=== PATIENT | male | born 1995 | race Caucasian/White ===

== ENCOUNTER 2023-02-09 14:09 | Emergency (ER) | payer MEDICAID ==
[2023-02-09 14:26] VITALS: BP 137/61
--- NOTE | 2023-02-09 15:24 | ED Physician Documentation ---
PD HPI SKIN - Stated complaint Stated Complaint: LUMP ON BACKSIDE - Chief complaint Chief Complaint: General - History obtained from History obtained from: Patient - History of Present Illness Timing - onset: Yesterday Timing - duration: Days (2) Timing - details: Gradual onset, Still present Location: Other (he noted a lump when wiping yestereday that is still present today. No pain/tenderness. No blood in stool. No abd pain. Has not had similar in the past.) Quality / character: Swelling (he states about half the size of a grape.). No: Itchy, Painful, Draining Associated symptoms: Other (some firm stools but not constipated per se. Not having to bear down. No diarrhea.). No: Fever, Myalgias, N/V/D Similar symptoms before: Has not had sx before Review of Systems Constitutional: denies: Fever, Chills GI: denies: Abdominal Pain, Nausea, Vomiting, Constipation, Diarrhea PD PAST MEDICAL HISTORY - Past Medical History Cardiovascular: None Respiratory: None - Present Medications Home Medications: Ambulatory Orders Medication Instructions Recorded Confirmed Docusate Sodium 100Mg Capsule 100 mg PO DAILY #20 cap 02/09/23 [Colace 100Mg Capsule] Hydrocortisone Supp [Anusol-Hc] 25 mg WI DAILY 5 Days #5 supp 02/09/23 - Allergies Allergies/Adverse Reactions: Allergies Allergy/AdvReac Type Severity Reaction Status Date / Time No Known Drug Allergies Allergy Verified 02/09/23 14:26 PD ED PE NORMAL - Vitals Vital signs reviewed: Yes - General General: Alert and oriented X 3, No acute distress, Well developed/nourished - Abdomen Abdomen: Soft, Non tender - Male Male : Deferred - Rectal Rectal: Other (small 2 cm external hemorrhoid that is nontender and soft. Does not feel thrombosed. No bleeding noted. No surrounding redness/swelling. ) Results - Vitals Vitals: Vital Signs - 24 hr 02/09/23 14:23 Temperature 36.1 C L Heart Rate 72 Respiratory 18 Rate Blood Pressure 137/61 H O2 Saturation 99 Oxygen O2 Source Room air PD Medical Decision Making - ED course Complexity details: considered differential (appears as a hemorrhoid. he has not had one before and was concerned about a new lump at rectum. we discussed treatment apropaches. ), d/w patient Departure - Departure Disposition: 01 Home, Self Care Clinical Impression: External hemorrhoid Condition: Stable Record reviewed to determine appropriate education?: Yes Instructions: Anusol Ointment, ED Hemorrhoids Prescriptions: Hydrocortisone Supp [Anusol-Hc] 25 mg WI DAILY 5 Days #5 supp Docusate Sodium 100Mg Capsule [Colace 100Mg Capsule] 100 mg PO DAILY #20 cap Comments: This appears to be a simple external hemorrhoid. It does not appear infected nor thrombosed nor bleeding. You can treat this with topical rypc-idm-icxvuum hemorrhoid cream such as Preparation H or hydrocortisone. If its hard for it to go away over the next several days (3 to 5 days) then sometimes there is some internal hemorrhoids component as well. If so add Hydrocortisone suppositories daily for several days. I would also suggest a stool softener daily for the next few days so the stool comes out easily but not watery. Stay well-hydrated. Return if increasing pain tenderness or swelling develops over the next several days. Discharge Date/Time: 02/09/23 16:10
== END 2023-02-09 16:10 | disposition home or self-care (01) ==
LOC: ED 14:09
DX: K64.4 Residual hemorrhoidal skin tags (principal)
CPT/HCPCS: 99282; 99283

== ENCOUNTER 2024-02-02 13:55 | Emergency (ER) | payer MEDICAID ==
[2024-02-02 14:30] VITALS: O2SAT 100
--- NOTE | 2024-02-02 16:04 | Ultrasound Report ---
PROCEDURE: Testicle w/Doppler INDICATIONS: testicular pain, swelling TECHNIQUE: Real-time scanning was performed of the scrotum and testicles, with image documentation. Color and p ulse Doppler interrogation was performed of both testicles. COMPARISON: None. FINDINGS: Right: Testicle is normal in size at 4.5 x 2.8 x 3.3 cm, and homogenous in echotexture. Epididymis is normal in overall size and morphology. No hydrocele. No varicoceles. Overlying scrotal skin is n ormal in thickness. Left: Testicle is normal in size at 4.5 x 2.5 x 3.8 cm, and homogeneous in echotexture. Epididymis is normal in overall size and morphology, with note made of a 5 mm left epididymal cyst. There is a moderate left-sided hydrocele. No varicoceles. Overlying scrotal skin is normal in thickness. Doppler: Color and pulse Doppler demonstrate normal and symmetric arterial flow in both testicles. IMPRESSION: No intratesticular mass can be seen. Normal-appearing, symmetric testicular vascularity. Moderate left-sided hydrocele. Note: Concordant preliminary findings given by the fondant cooker upon the completion of the examination to Dr. Doyle at 3:55 PM on 02/02/2024. Reviewed by: Kofi Gutierrez MD on 02/02/2024 3:03 PM [facility] Approved by: Kofi Gutierrez MD on 02/02/2024 3:03 PM [facility] Station ID: [id number]
[2024-02-02 16:17] LABS: BILIRUBIN,URINE NEGATIVE (NEGATIVE); CLARITY,URINE CLEAR (CLEAR); GLUCOSE, URINE (UA) NEGATIVE (NEGATIVE); KETONES,URINE (UA) NEGATIVE (NEGATIVE); LEUKOCYTE ESTERASE, URINE NEGATIVE (NEGATIVE); NITRITE,URINE NEGATIVE (NEGATIVE); OCCULT BLOOD,URINE NEGATIVE (NEGATIVE); PROTEIN,URINE NEGATIVE (NEGATIVE); UROBILINOGEN,URINE 0.2 (NORMAL) E.U./dL (NORMAL)
--- NOTE | 2024-02-02 17:11 | ED Physician Documentation ---
History of Present Illness - Stated complaint Stated Complaint: MALE - Chief complaint Chief Complaint: Abd Pain - History obtained from History obtained from: Patient - History of Present Illness Pain level max: 3 Pain level now: 3 - Additonal information Additional information: Patient is a 28-year-old male who presents to the emergency department with intermittent left testicular pain for the past week. He states occasionally feels a dull ache in the left testicle. Denies any STI exposure. No changes in sexual partners. No penile discharge. No swelling. He states he felt like there was a small mass near the epididymis of the left testicle. No skin changes. No redness. No abdominal pain, back pain, flank pain. Has not had similar symptoms previously. No sharp pain. No severe pain. Review of Systems Constitutional: denies: Fever, Chills GI: denies: Vomiting, Diarrhea : denies: Dysuria, Frequency, Hesitancy, Discharge Skin: denies: Rash Musculoskeletal: denies: Neck pain, Back pain PD PAST MEDICAL HISTORY - Past Medical History Cardiovascular: None Respiratory: None - Past Surgical History Past Surgical History: Yes HEENT: Tonsil/Adenoidectomy - Present Medications Home Medications: Ambulatory Orders Medication Instructions Recorded Confirmed No Known Home Medications 02/02/24 02/02/24 - Allergies Allergies/Adverse Reactions: Allergies Allergy/AdvReac Type Severity Reaction Status Date / Time No Known Drug Allergies Allergy Verified 02/02/24 14:29 - Social History Does the pt smoke?: No Smoking Status: Never smoker Does the pt drink ETOH?: Yes Does the pt have substance abuse?: No Substance Use and Type: Marijuana PD ED PE NORMAL - Vitals Vital signs reviewed: Yes - General General: Alert and oriented X 3, No acute distress - HEENT HEENT: Moist mucous membranes - Neck Neck: Supple, no meningeal sign - Cardiac Cardiac: RRR, Strong equal pulses - Respiratory Respiratory: No respiratory distress, Clear bilaterally - Abdomen Abdomen: Soft, Non tender, Non distended - Male Male : Other (Normal testicular exam. No deformity. No normal lie. No testicular tenderness. No scrotal swelling or changes. No penile discharge. No inguinal lymphadenopathy.) - Back Back: No spinal TTP - Derm Derm: Warm and dry - Neuro Neuro: Alert and oriented X 3 - Psych Psych: Normal mood, Normal affect Results - Vitals Vitals: Vital Signs - 24 hr 02/02/24 02/02/24 14:25 17:24 Temperature 36.7 C Heart Rate 71 68 Respiratory 16 16 Rate Blood Pressure 131/79 H 128/82 H O2 Saturation 100 100 Oxygen O2 Source Room air - Labs Labs: Laboratory Tests 02/02/24 02/02/24 16:07 16:07 Urine Color YELLOW Urine Clarity CLEAR Urine pH 7.0 Ur Specific [place] 1.015 Urine Protein NEGATIVE Urine Glucose (UA) NEGATIVE Urine Ketones NEGATIVE Urine Occult Blood NEGATIVE Urine Nitrite NEGATIVE Urine Bilirubin NEGATIVE Urine Urobilinogen 0.2 (NORMAL) Ur Leukocyte Esterase NEGATIVE Ur Microscopic Review NOT INDICATED Urine Culture Comments NOT INDICATED Chlam trachomat DNA PCR NEGATIVE N.gonorrhoeae DNA (PCR) NEGATIVE T. vaginalis (PCR) NEGATIVE - Rads (name of study) Testicular ultrasound Relevant Findings:: Final report received, See rad report PD Medical Decision Making - ED course Complexity details: reviewed results, re-evaluated patient, considered differential, d/w patient ED course: 28-year-old male with a left-sided hydrocele. No evidence of testicular torsion. History is not consistent with torsion. No evidence of testicular mass. No evidence of tumor. No acute findings on urinalysis. Not having significant pain in the emergency department. Can follow-up with his PCP and/or urology as needed for further care. Patient counseled regarding signs and symptoms for which I believe and urgent re-evaluation would be necessary. Patient with good understanding of and agreement to plan and is comfortable going home at this time This document was made in part using voice recognition software. While efforts are made to proofread this document, sound alike and grammatical errors may occur. Departure - Departure Disposition: 01 Home, Self Care Clinical Impression: Testicular pain Qualifiers: Laterality: left Qualified Code(s): N50.812 - Left testicular pain Hydrocele Qualifiers: Hydrocele type: unspecified Qualified Code(s): N43.3 - Hydrocele, unspecified Condition: Good Instructions: ED Hydrocele Type Not Specified Follow-Up: Michelle Connell ARNP [Primary Care Provider] - Aric Oneill MD [Provider Admit Priv/Credential] - Comments: You have a left-sided hydrocele, this can cause pain. Your urinalysis does not show any signs of infection. There is no evidence of tumors or masses on your ultrasound. Your ultrasound read as below. You can follow-up with urology for further care. Please return if you worsen. PROCEDURE: Testicle w/Doppler INDICATIONS: testicular pain, swelling TECHNIQUE: Real-time scanning was performed of the scrotum and testicles, with image documentation. Color and pulse Doppler interrogation was performed of both testicles. COMPARISON: None. FINDINGS: Right: Testicle is normal in size at 4.5 x 2.8 x 3.3 cm, and homogenous in echotexture. Epididymis is normal in overall size and morphology. No hydrocele. No varicoceles. Overlying scrotal skin is normal in thickness. Left: Testicle is normal in size at 4.5 x 2.5 x 3.8 cm, and homogeneous in echotexture. Epididymis is normal in overall size and morphology, with note made of a 5 mm left epididymal cyst. There is a moderate left-sided hydrocele. No varicoceles. Overlying scrotal skin is normal in thickness. Doppler: Color and pulse Doppler demonstrate normal and symmetric arterial flow in both testicles. IMPRESSION: No intratesticular mass can be seen. Normal-appearing, symmetric testicular vascularity. Moderate left-sided hydrocele. Forms: PCP List Discharge Date/Time: 02/02/24 17:24
[2024-02-02 17:31] VITALS: BP 128/82
[2024-02-02 20:16] LABS: CHLAMYDIA TRACHOMATIS DNA NEGATIVE (NEGATIVE); NEISSERIA GONORRHOEAE DNA NEGATIVE (NEGATIVE); TRICHOMONAS VAGINALIS DNA NEGATIVE (NEGATIVE)
== END 2024-02-02 17:24 | disposition home or self-care (01) ==
LOC: ED 13:55
DX: N43.3 Hydrocele, unspecified (principal)
CPT/HCPCS: 81001; 81003; 87086; 87491; 87591; 87661; 93975; 99283; 99284

== ENCOUNTER 2024-05-08 20:04 | Emergency (ER) | payer MEDICAID ==
--- NOTE | 2024-05-08 22:41 | ED Physician Documentation ---
History of Present Illness - Stated complaint Stated Complaint: BILAT LEG PX - Chief complaint Chief Complaint: Ext Problem - History obtained from History obtained from: Patient - Additonal information Additional information: 28yM previously healthy p/w BL LE cramping leg pain X couple days. denies Clotting disorder, hormone or steroid use, leg swelling, calf pain, trauma to the area, recent prolonged travel or bedrest, active cancer. PD PAST MEDICAL HISTORY - Past Medical History Past Medical History: No Cardiovascular: None Respiratory: None Neuro: None Endocrine/Autoimmune: None GI: None : None HEENT: None Psych: None Musculoskeletal: None Derm: None - Past Surgical History Past Surgical History: Yes HEENT: Tonsil/Adenoidectomy - Present Medications Home Medications: Ambulatory Orders Medication Instructions Recorded Confirmed No Known Home Medications 02/02/24 05/08/24 - Allergies Allergies/Adverse Reactions: Allergies Allergy/AdvReac Type Severity Reaction Status Date / Time No Known Drug Allergies Allergy Verified 05/08/24 21:26 - Social History Does the pt smoke?: No Smoking Status: Never smoker Does the pt drink ETOH?: Yes Does the pt have substance abuse?: No - Immunizations Immunizations are current?: Yes - POLST Patient has POLST: No PD ED PE NORMAL - Vitals Vital signs reviewed: Yes - General General: Alert and oriented X 3, No acute distress, Well developed/nourished - HEENT HEENT: Atraumatic, PERRL, EOMI, Moist mucous membranes, Pharynx benign - Neck Neck: Supple, no meningeal sign - Derm Derm: Normal color, Warm and dry - Extremities Extremities: No deformity, No tenderness to palpate, No edema, No calf tenderness / cord, Other (2+ BL DP pulses. CSM intact BL LE) Results - Vitals Vitals: Vital Signs - 24 hr 05/08/24 21:19 Temperature 36.6 C Heart Rate 72 Respiratory 16 Rate Blood Pressure 120/74 O2 Saturation 98 Oxygen O2 Source Room air PD Medical Decision Making - ED course ED course: 28yM p/w BL LE pain, likely muscle cramps. low risk for dvt per screening questions and benign exam. offered nsaids in the ed but patient declined stating he'll take home otcs. return precautions given. plan to f/u with pcp. Departure - Departure Disposition: 01 Home, Self Care Clinical Impression: Pain of lower extremity Condition: Stable Instructions: ED Muscle Pain Leg Cramps Comments: You were seen in the emergency department for leg pain. This does not appear to be dangerous. Please follow-up with your primary care provider and return to the emergency department if you have any new or worsening symptoms or other concerns.
[2024-05-08 22:50] VITALS: BP 128/71; O2SAT 99
== END 2024-05-08 22:43 | disposition home or self-care (01) ==
LOC: ED 20:04
DX: M79.605 Pain in left leg (principal); M79.604 Pain in right leg
CPT/HCPCS: 99281; 99283